=== PATIENT | female | born 1950 | race Caucasian/White ===

== ENCOUNTER → 2018-02-20 | Outpatient (CLI) | payer MEDICARE, OTHER ==
[2015-12-23 08:08] VITALS: BP 150/90
[~2018-02-20] MED LIST: MECL25TA3 PO
== END | disposition home or self-care (01) ==
LOC: SURG 14:16
PROVIDERS: ATTEND Anesthesiology
DX: M54.16 Radiculopathy, lumbar region (principal); M54.14 Radiculopathy, thoracic region; I10 Essential (primary) hypertension; E78.5 Hyperlipidemia, unspecified; Z96.652 Presence of left artificial knee joint; Z90.710 Acquired absence of both cervix and uterus
CPT/HCPCS: 99204

== ENCOUNTER → 2018-02-27 | Outpatient (CLI) | payer MEDICARE, OTHER ==
[2015-12-23 08:08] VITALS: BP 150/90
== END | disposition home or self-care (01) ==
LOC: SURG 13:37
PROVIDERS: ATTEND Anesthesiology
DX: I10 Essential (primary) hypertension (principal); E78.5 Hyperlipidemia, unspecified; M54.5 Low back pain; R10.84 Generalized abdominal pain
CPT/HCPCS: 99214

== ENCOUNTER → 2018-03-29 | Outpatient (CLI) | payer MEDICARE, OTHER ==
[~2018-03-29] MED LIST changes: +ASPI81TA50 PO; +BUPIVACAINE MPF 0.5% 30 ML VIAL. ONE; +CELE200C PO; +CHOL10003 PO; +CYCL-331 PO; +FEXO180T81 PO; +GABA800T2 PO; +GLUC100018 PO; +IOHEXOL 300 MG/ML 50 ML VIAL. ONE; +IV RINGERS SOLUTION,LACTATED 1,000 ML IV SCH; +LACT1CAP21 PO; +LIDOCAINE 1% PF 30 ML VIAL. ONE; +LOSA25TA4 PO; +MAGN400C PO; +MIDAZOLAM HCL PF 2 MG/2 ML VIAL. ONE; +MULT1TAB52 PO; +OXYC-323 PO; +POTA10TA10 PO; +PRAV20TA2 PO; +RANI150T21 PO; +ceFAZolin SODIUM 1 GM VIAL ONE
== END | disposition home or self-care (01) ==
LOC: SURG 07:28
PROVIDERS: ATTEND Anesthesiology Pain Medicine
DX: M48.56XA Collapsed vertebra, not elsewhere classified, lumbar region, initial encounter for fracture (principal); M54.5 Low back pain; I10 Essential (primary) hypertension; Z87.39 Personal history of other diseases of the musculoskeletal system and connective tissue
CPT/HCPCS: 22514; C1713; J0690; J2001; J2250; J3010; J3490; J7120; Q9967; 22513; 99152; 99153

== ENCOUNTER → 2018-04-12 | Outpatient (CLI) | payer MEDICARE, OTHER ==
[~2018-04-12] MED LIST changes: +0.9 % SODIUM CHLORIDE 10 ML VIAL ONE; -BUPIVACAINE MPF 0.5% 30 ML VIAL. ONE; +DEXAMETHASONE SOD PHOS 4 MG/ML VIAL ONE; -IV RINGERS SOLUTION,LACTATED 1,000 ML IV SCH; -MIDAZOLAM HCL PF 2 MG/2 ML VIAL. ONE; -ceFAZolin SODIUM 1 GM VIAL ONE; +methylPREDNISolone ACETATE 80 MG/ML VIAL. ONE
== END ==
LOC: SURG 09:55
PROVIDERS: ATTEND Anesthesiology Pain Medicine
DX: M54.14 Radiculopathy, thoracic region (principal); I10 Essential (primary) hypertension; Z87.39 Personal history of other diseases of the musculoskeletal system and connective tissue; Z90.710 Acquired absence of both cervix and uterus; Z96.652 Presence of left artificial knee joint
CPT/HCPCS: 62321; J1040; J2001; Q9967; 62323

== ENCOUNTER → 2018-05-18 | Outpatient (CLI) | payer MEDICARE, OTHER ==
[~2018-05-18] MED LIST changes: -0.9 % SODIUM CHLORIDE 10 ML VIAL ONE; -DEXAMETHASONE SOD PHOS 4 MG/ML VIAL ONE; -IOHEXOL 300 MG/ML 50 ML VIAL. ONE; -LIDOCAINE 1% PF 30 ML VIAL. ONE; -methylPREDNISolone ACETATE 80 MG/ML VIAL. ONE
== END | disposition home or self-care (01) ==
LOC: SURG 13:36
PROVIDERS: ATTEND Anesthesiology Pain Medicine
DX: M54.14 Radiculopathy, thoracic region (principal); I10 Essential (primary) hypertension; E78.5 Hyperlipidemia, unspecified; G62.9 Polyneuropathy, unspecified; Z96.652 Presence of left artificial knee joint; Z90.710 Acquired absence of both cervix and uterus; Z98.890 Other specified postprocedural states; Z79.82 Long term (current) use of aspirin; Z79.899 Other long term (current) drug therapy; Z88.2 Allergy status to sulfonamides
CPT/HCPCS: 62321; J1040; J1100; J2001; Q9967

== ENCOUNTER → 2018-07-06 | Outpatient (CLI) | payer MEDICARE, OTHER | END | disposition home or self-care (01) | LOC: SURG 13:27 | PROVIDERS: ATTEND Anesthesiology Pain Medicine | DX: M47.814 Spondylosis without myelopathy or radiculopathy, thoracic region (principal); M54.14 Radiculopathy, thoracic region; G89.4 Chronic pain syndrome; F11.90 Opioid use, unspecified, uncomplicated; Z87.81 Personal history of (healed) traumatic fracture | CPT/HCPCS: 99214 ==

== ENCOUNTER → 2018-09-13 | Outpatient (CLI) | payer MEDICARE, OTHER ==
[~2018-09-13] MED LIST changes: -LOSA25TA4 PO; +LOSA25TA5 PO
== END | disposition home or self-care (01) ==
LOC: SURG 10:07
PROVIDERS: ATTEND Anesthesiology Pain Medicine
DX: M51.35 Other intervertebral disc degeneration, thoracolumbar region (principal); M48.50XA Collapsed vertebra, not elsewhere classified, site unspecified, initial encounter for fracture; M47.814 Spondylosis without myelopathy or radiculopathy, thoracic region; G89.4 Chronic pain syndrome; J44.9 Chronic obstructive pulmonary disease, unspecified; I10 Essential (primary) hypertension; M19.90 Unspecified osteoarthritis, unspecified site; F11.90 Opioid use, unspecified, uncomplicated
CPT/HCPCS: 99214

== ENCOUNTER → 2018-09-27 | Outpatient (CLI) | payer MEDICARE, OTHER ==
[~2018-09-27] MED LIST changes: +BUPIVACAINE MPF 0.25% 30 ML VIAL. ONE; +LIDOCAINE 1% PF 30 ML VIAL. ONE
== END | disposition home or self-care (01) ==
LOC: SURG 10:11
PROVIDERS: ATTEND Anesthesiology Pain Medicine
DX: M47.814 Spondylosis without myelopathy or radiculopathy, thoracic region (principal); Z79.899 Other long term (current) drug therapy; Z79.82 Long term (current) use of aspirin; Z88.1 Allergy status to other antibiotic agents; Z88.0 Allergy status to penicillin; Z88.5 Allergy status to narcotic agent; Z88.8 Allergy status to other drugs, medicaments and biological substances; Z88.6 Allergy status to analgesic agent
CPT/HCPCS: 64490; 64491; 64492; J2001; J3490

== ENCOUNTER → 2018-12-20 | Day surgery (SDC) | payer MEDICARE, OTHER ==
[~2018-12-20] MED LIST changes: +BUPIVACAINE MPF 0.25% 10 ML VIAL. ONE; -BUPIVACAINE MPF 0.25% 30 ML VIAL. ONE; +DEXAMETHASONE SOD PHOS 4 MG/ML VIAL ONE; +DULO60CA6 PO; -GABA800T2 PO; +GABA800T5 PO; +HYDR200T71 PO; +IV RINGERS SOLUTION,LACTATED 1,000 ML IV ONE; +LOSA25TA11 PO; -LOSA25TA5 PO; +MIDAZOLAM HCL PF 2 MG/2 ML VIAL. ONE; -OXYC-323 PO; +OXYC1TAB15 PO; +PANT40TA5 PO
[2018-12-20 10:18] VITALS: BP 100/60
--- NOTE | 2018-12-20 12:28 | NUR ---
I STARTED LR ON THE PT AFTER SHE WAS ADMITTED DUE TO HER PRESSURE RUNNING A LITTLE LOW. ORDER FOR LR WAS MISSED IN THE COMPUTER SO IT IS A LATE ENTRY. I STARTED IT AT 0805 USING PRESENT SL. PUT ORDER IN COMPUTER AFTER CASE WAS DONE AND PT WAS IN RECOVERY.
== END | disposition home or self-care (01) ==
LOC: SURG 07:23
PROVIDERS: ATTEND Anesthesiology Pain Medicine
DX: M47.814 Spondylosis without myelopathy or radiculopathy, thoracic region (principal); I10 Essential (primary) hypertension; K21.9 Gastro-esophageal reflux disease without esophagitis; M19.90 Unspecified osteoarthritis, unspecified site; Z98.890 Other specified postprocedural states; Z90.710 Acquired absence of both cervix and uterus; Z96.652 Presence of left artificial knee joint; Z88.1 Allergy status to other antibiotic agents; Z79.82 Long term (current) use of aspirin; Z79.899 Other long term (current) drug therapy; E78.5 Hyperlipidemia, unspecified; G62.9 Polyneuropathy, unspecified
CPT/HCPCS: 64633; 64634; 99152; 99153; J1100; J2001; J2250; J3010; J3490; J7120

== ENCOUNTER → 2019-01-17 | Day surgery (SDC) | payer MEDICARE, OTHER ==
[2018-12-20 10:18] VITALS: BP 100/60
[~2019-01-17] MED LIST changes: -IV RINGERS SOLUTION,LACTATED 1,000 ML IV ONE; -MIDAZOLAM HCL PF 2 MG/2 ML VIAL. ONE
== END | disposition home or self-care (01) ==
LOC: SURG 07:24
PROVIDERS: ATTEND Anesthesiology Pain Medicine
DX: M47.894 Other spondylosis, thoracic region (principal); M54.16 Radiculopathy, lumbar region; G89.4 Chronic pain syndrome; F11.90 Opioid use, unspecified, uncomplicated; I10 Essential (primary) hypertension; E78.5 Hyperlipidemia, unspecified; Z96.652 Presence of left artificial knee joint; Z90.710 Acquired absence of both cervix and uterus; Z79.899 Other long term (current) drug therapy
CPT/HCPCS: 99214; J1100; J2001; J3490

== ENCOUNTER → 2019-10-11 | Outpatient (CLI) | payer MEDICARE, OTHER ==
[~2019-10-11] MED LIST changes: +ACET500T68 PO; -BUPIVACAINE MPF 0.25% 10 ML VIAL. ONE; -DEXAMETHASONE SOD PHOS 4 MG/ML VIAL ONE; +FERR325T14 PO; -LIDOCAINE 1% PF 30 ML VIAL. ONE; +RANI-376 PO; -RANI150T21 PO
[2019-10-11 12:53] VITALS: BP 133/82
== END | disposition home or self-care (01) ==
LOC: SURG 12:30
PROVIDERS: ATTEND Anesthesiology Pain Medicine
DX: M54.16 Radiculopathy, lumbar region (principal); M47.814 Spondylosis without myelopathy or radiculopathy, thoracic region; G89.4 Chronic pain syndrome; I10 Essential (primary) hypertension; E78.5 Hyperlipidemia, unspecified; Z96.652 Presence of left artificial knee joint; Z90.710 Acquired absence of both cervix and uterus; Z79.82 Long term (current) use of aspirin; Z79.1 Long term (current) use of non-steroidal anti-inflammatories (NSAID); Z98.890 Other specified postprocedural states; Z79.899 Other long term (current) drug therapy
CPT/HCPCS: 99214

== ENCOUNTER → 2019-11-06 | Outpatient (CLI) | payer MEDICARE, OTHER ==
[~2019-11-06] MED LIST changes: +0.9 % SODIUM CHLORIDE 10 ML VIAL ONE; +DICL100G18 TP; +IOHEXOL 300 MG/ML 50 ML VIAL. ONE; +LIDOCAINE 1% PF 30 ML VIAL. ONE; +methylPREDNISolone ACETATE 80 MG/ML VIAL. ONE
[2019-11-06 15:25] VITALS: BP 121/72
== END ==
LOC: SURG 14:29
PROVIDERS: ATTEND Anesthesiology Pain Medicine
DX: M54.16 Radiculopathy, lumbar region (principal)
CPT/HCPCS: 62323; J1040; J2001; Q9967

== ENCOUNTER → 2019-12-05 | Outpatient (CLI) | payer MEDICARE, OTHER ==
[~2019-12-05] MED LIST changes: +HYDR-2155 PO; +MECL-75 PO; -MECL25TA3 PO
[2019-12-05 14:26] VITALS: BP 129/80
== END | disposition home or self-care (01) ==
LOC: SURG 13:26
PROVIDERS: ATTEND Anesthesiology Pain Medicine
DX: M54.16 Radiculopathy, lumbar region (principal); M47.814 Spondylosis without myelopathy or radiculopathy, thoracic region; M54.5 Low back pain; G89.4 Chronic pain syndrome; I10 Essential (primary) hypertension; E78.5 Hyperlipidemia, unspecified; G62.89 Other specified polyneuropathies; Z88.8 Allergy status to other drugs, medicaments and biological substances; Z98.890 Other specified postprocedural states; Z79.82 Long term (current) use of aspirin; Z79.899 Other long term (current) drug therapy; Z90.710 Acquired absence of both cervix and uterus; Z96.652 Presence of left artificial knee joint
CPT/HCPCS: 62323; J1040; J2001; Q9967

== ENCOUNTER → 2020-01-02 | Outpatient (CLI) | payer MEDICARE, OTHER ==
[~2020-01-02] MED LIST changes: +BUPIVACAINE MPF 0.25% 10 ML VIAL. ONE
[2020-01-02 14:25] VITALS: BP 141/83
== END ==
LOC: SURG 13:29
PROVIDERS: ATTEND Anesthesiology Pain Medicine
DX: M54.16 Radiculopathy, lumbar region (principal); I10 Essential (primary) hypertension; E78.5 Hyperlipidemia, unspecified; G62.9 Polyneuropathy, unspecified; Z96.652 Presence of left artificial knee joint; Z90.710 Acquired absence of both cervix and uterus
CPT/HCPCS: 62323; J1040; J2001; Q9967; J3490

== ENCOUNTER 2020-02-03 18:30 | Emergency (ER) | payer MEDICARE, OTHER ==
[~2020-02-03] VITALS: Ht 162.6 cm; Wt 82.7 kg
[~2020-02-03 18:30] MED LIST changes: -0.9 % SODIUM CHLORIDE 10 ML VIAL ONE; -BUPIVACAINE MPF 0.25% 10 ML VIAL. ONE; -IOHEXOL 300 MG/ML 50 ML VIAL. ONE; -LIDOCAINE 1% PF 30 ML VIAL. ONE; -methylPREDNISolone ACETATE 80 MG/ML VIAL. ONE
[2020-02-03 19:04] VITALS: BP 148/98
[2020-02-03] MEDS ORDERED: HYDROcodone/APAP 5/325MG 1 TAB TABLET PO ONE (19:15)
--- NOTE | 2020-02-03 19:57 | RAD ---
Study: HIP LEFT 2V WITH PELVIS Indication: Chronic pain. Remote trauma. Comparison: None available. Findings: No acute fracture. Moderate right and mild left hip arthrosis. Degenerative changes at the sacroiliac joints with periarticular sclerosis. Discogenic arthrosis at the visualized lumbar levels. No radiographic evidence for a sacral fracture. Relatively symmetric density of both femoral heads and without definitive findings of avascular necrosis. Impression: 1. No acute osseous abnormality. 2. Moderate right and mild left hip arthrosis. Degenerative changes also seen at the sacroiliac joints and visualized lumbar spine. Electronically signed by: JOEL FREDERICK MD (02/03/2020 7:54 PM) [id number]
--- NOTE | 2020-02-03 20:02 | PHYS DOC ---
Past History Past Medical History: Arthritis, Hypertension Past Surgical History: Hysterectomy, Knee Replacement, Tonsillectomy Additional Past Surgical Histo: bilateral knee replacement Alcohol Use: None Drug Use: None Adult General Chief Complaint Chief Complaint: BACK PAIN OR INJURY [facility] HPI Patient is 69-year-old female presenting with left back pain. Is been every day all day worse in the morning for the last 8 months has gotten steroid injections in the past most recently December 2019 January 02 she thinks. Today she was at the chiropractor they did what sounds most like a tens unit and then when she got up from a lying down position she had increasing pain left side left buttock radiates to the left knee down the posterior leg. No bowel or bladder incontinence. She was having significant pain to the came to the emergency room for evaluation she fell 8 months ago they were worried because nobody ever checked her hip and they were thinking that maybe we could do that tonight. Review of Systems Review of Systems Constitutional: Denies fever or chills [] Eyes: Denies change in visual acuity, redness, or eye pain [] HENT: Denies nasal congestion or sore throat [] Respiratory: Denies cough or shortness of breath [] Cardiovascular: No additional information not addressed in HPI [] All other systems were reviewed and found to be within normal limits, except as documented in this note. Current Medications Current Medications Current Medications Medications (Trade) Dose Ordered Sig/Chris Start Time Stop Time Status Last Admin Dose Admin Acetaminophen/ Hydrocodone Bitart (Lortab 5/325) 2 tab 1X ONCE 02/03/20 19:15 02/03/20 19:16 DC Allergies Allergies Allergies Coded Allergies Type Severity Reaction Last Updated Verified niacin Allergy Unknown 12/05/19 Yes Physical Exam Physical Exam Constitutional: Well developed, well nourished, no acute distress, non-toxic a ppearance. [] HENT: Normocephalic, atraumatic, bilateral external ears normal, oropharynx moist, no oral exudates, nose normal. [] Eyes: PERRLA, EOMI, conjunctiva normal, no discharge. [] Neck: Normal range of motion, no tenderness, supple, no stridor. [] Cardiovascular:Heart rate regular rhythm, no murmur [] Lungs & Thorax: Bilateral breath sounds clear to auscultation [] Abdomen: Bowel sounds normal, soft, no tenderness, no masses, no pulsatile masses. [] Skin: Warm, dry, no erythema, no rash. [] Aris tender to palpation left buttock left posterior paraspinous area no midline focal tenderness. Extremities: No tenderness, no cyanosis, no clubbing, ROM intact, no edema. [] Neurologic: Alert and oriented X 3, normal motor function, normal sensory function except for decreased sensation to light touch bilaterally in bilateral lower extremities secondary to pre-existing neuropathy no focal deficits noted. [] Psychologic: Affect normal, judgement normal, mood normal. [] Current Patient Data Vital Signs Vital Signs Date Time Temp Pulse Resp B/P (MAP) Pulse Ox O2 Delivery O2 Flow Rate FiO2 02/03/20 19:04 98.3 112 16 148/98 (115) 96 Room Air EKG EKG [] Radiology/Procedures Radiology/Procedures [] Impressions: acute fracture. Moderate right and mild left hip arthrosis. Degenerative changes at the sacroiliac joints with periarticular sclerosis. Discogenic arthrosis at the visualized lumbar levels. No radiographic evidence for a sacral fracture. Relatively symmetric density of both femoral heads and without definitive findings of avascular necrosis. Impression: 1. No acute osseous abnormality. 2. Moderate right and mild left hip arthrosis. Degenerative changes also seen at the sacroiliac joints and visualized lumbar spine. Electronically signed by: JOEL FREDERICK MD (02/03/2020 7:54 PM) [id number] DICTATED AND SIGNED BY: JOEL FREDERICK MD DATE: 02/03/201953 CC: DORA VALLADARES MD; ARIEL ZHAO MD ~ Course & Med Decision Making Course & Med Decision Making Pertinent Labs and Imaging studies reviewed. (See chart for details) [] 69-year-old female presenting with back pain sounds like sciatica acutely worsened today but is been present for months and months and months has follow- up with pain management tomorrow. X-ray imaging of the hip was negative acute I did give the patient a dose of [place] and advised specialty referral as she has follow-up for already tomorrow. No signs of cauda equina. Dragon Disclaimer Dragon Disclaimer This electronic medical record was generated, in whole or in part, using a voice recognition dictation system. Departure Departure: Impression: Primary Impression: Back pain Disposition: 01 HOME, SELF-CARE Condition: STABLE Patient Instructions: Back Pain, Adult, [id number] ARIEL ZHAO MD Feb 03, 2020 20:02
== END 2020-02-03 20:28 | disposition home or self-care (01) ==
LOC: ER 18:30
DX: M54.5 Low back pain (principal); M25.552 Pain in left hip; M19.90 Unspecified osteoarthritis, unspecified site; I10 Essential (primary) hypertension; Z90.710 Acquired absence of both cervix and uterus; Z90.89 Acquired absence of other organs; Z98.890 Other specified postprocedural states; Z88.1 Allergy status to other antibiotic agents
CPT/HCPCS: 73502; 99284

== ENCOUNTER 2020-12-05 11:43 | Emergency (ER) | payer MEDICARE, OTHER ==
[~2020-12-05] VITALS: Ht 162.6 cm; Wt 82.7 kg
[2020-12-05 11:43] VITALS: BP 140/79
[~2020-12-05 11:43] MED LIST changes: +MULT-445 PO; -MULT1TAB52 PO; -PANT40TA5 PO; +PANT40TA6 PO
[2020-12-05] MEDS ORDERED: IV NORMAL SALINE 1,000ML 1,000 ML IV ONE (12:30)
--- NOTE | 2020-12-05 12:32 | PHYS DOC ---
Past History Past Medical History: Arthritis, Hypertension (HELENA HARRIS APRN) Past Surgical History: Hysterectomy, Knee Replacement, Tonsillectomy Additional Past Surgical Histo: bilateral knee replacement (HELENA HARRIS APRN) Alcohol Use: None Drug Use: None (HELENA HARRIS APRN) Adult General Chief Complaint Chief Complaint: DIARRHEA HPI HPI Patient is a 70-year-old female presents emergency department with a 5-day history of explosive diarrhea. Patient states that within a half an hour of eating she finds her self running to the bathroom and having diarrhea spells at times has been incontinent of stool. Patient notices undigested food and brown watery stool in the diarrhea. Patient denies any abdominal pains. Patient denies being on any recent antibiotics. Patient denies nausea, vomiting, constipation, or seeing blood in her stools. Patient describes her stool is very malodorous. Patient states she is eating and drinking okay and has been drinking Gatorade to keep her fluids up. Patient denies any shortness of breath, chest pains, chest congestion, or nasal congestion, patient denies recent fever or chills. Patient denies any recent illnesses. Patient reports that she seen Dr. Greene 2 days ago this past who had her give 3 stool samples looking for C. difficile. Patient states she has not heard the results back from Dr. Herron's office. Patient states that over the past 24 hours she has had 6-8 diarrhea spells. Patient reports an allergy to niacin. Patient works a past medical history of chronic back pains that was relieved with a spine cement procedure 3 years ago and no longer requires muscle relaxers or pain medications for pain management. 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 Patient also suffered a fall that resulted in a left patellar fracture and currently is followed by orthopedic specialty and is wearing a knee brace on the left lower extremity. Patient states that she stopped taking her iron supplement 2 days ago because she noticed it was making her stools black. Patient states since then she is no longer noticing black stools. Patient denies any other illnesses or physical complaints. Patient states no one else living in her home is having the same symptoms that she. (HELENA HARRIS APRN) Review of Systems Review of Systems 14 body systems of review of systems have been reviewed. See HPI for pertinent positives and negative responses, otherwise all other systems are negative, nonpertinent or noncontributory. (HELENA HARRIS APRN) Current Medications Current Medications Patient reports taking 10 mEq potassium chloride daily, vitamin D3 1000 unit tablet daily, multivitamin daily, pravastatin 20 mg daily, losartan 25 mg daily, pantoprazole 40 mg daily, Voltaren gel topical twice daily. Current Medications Medications (Trade) Dose Ordered Sig/Chris Start Time Stop Time Status Last Admin Dose Admin Sodium Chloride 1,000 ml @ 1,000 mls/hr 1X ONCE 12/05/20 12:30 12/05/20 13:29 12/05/20 12:28 1,000 MLS/HR (HELENA HARRIS APRN) Allergies Allergies Allergies Coded Allergies Type Severity Reaction Last Updated Verified niacin Allergy Unknown 12/05/19 Yes (HELENA HARRIS APRN) Physical Exam Physical Exam Constitutional: Well developed, well nourished, no acute distress, non-toxic appearance. HENT: Normocephalic, atraumatic, bilateral external ears normal, oropharynx moist, no oral exudates, nose normal. Oral mucosa moist without signs of dehydration. Eyes: PERRLA, EOMI, conjunctiva normal, no discharge. Neck: Normal range of motion, no tenderness, supple, no stridor. Cardiovascular:Heart rate regular rhythm, no murmur, heart sounds S1-S2., Increased heart rate consistent with bedside 5-lead EKG of 103 bpm. Lungs & Thorax: Bilateral breath sounds clear to auscultation all lung hartley. Abdomen: Bowel sounds normal, soft, no tenderness, no masses, no pulsatile masses. Skin: Warm, dry, no erythema, no rash. Back: No tenderness, no CVA tenderness. Extremities: No tenderness, no cyanosis, no clubbing, ROM intact, no edema. Neurologic: Alert and oriented X 3, normal motor function, normal sensory function, no focal deficits noted. Psychologic: Affect normal, judgement normal, mood normal. (HELENA HARRIS APRN) Current Patient Data Vital Signs Vital Signs Date Time Temp Pulse Resp B/P (MAP) Pulse Ox O2 Delivery O2 Flow Rate FiO2 12/05/20 11:43 99.0 99 12 140/79 (99) 100 Room Air (HELENA HARRIS APRN) EKG EKG [] (HELENA HARRIS APRN) Radiology/Procedures Radiology/Procedures [] (HELENA HARRIS APRN) Heart Score Risk Factors: Risk Factors: DM, Current or recent (<one month) smoker, HTN, HLP, family history of CAD, obesity. Risk Scores: Risk Factors: DM, Current or recent (<one month) smoker, HTN, HLP, family history of CAD, obesity. (HELENA HARRIS APRN) Course & Med Decision Making Course & Med Decision Making Pertinent Labs and Imaging studies reviewed. (See chart for details) 70-year-old female with reported 5-day history of explosive diarrhea without abdominal pain. Physical exam was unremarkable, vital signs stable except for heart rate slightly tachycardic at 103 during exam. ED work-up will consist of CBC, CMP, lipase, routine Covid test for PUI, saline lock, 1 L normal saline. Labs pending at this time. Reexamination of patient revealed vital signs stable, heart rate normal sinus rhythm without ectopy for 5-lead bedside EKG. Patient states she feels much better. Patient has had no diarrhea spells during her ER stay. We will treat patient's complaint of diarrhea with 4 mg Imodium p.o. and will discharge with prescription for Imodium with strict instructions how to take. Patient gave verbal understanding of COVID-19 PUI instructions, prescription medications, discharge instructions, home care, return to emergency department concerns, follow-up with primary care on Monday for stool sample results, patient had no further questions or concerns and was discharged home without incident. Impression: #1 diarrhea #2 PUI (HELENA HARRIS APRN) Course & Med Decision Making I oversaw care of patient while in ER. I reviewed and discussed case with HOT PRESS OPERATOR, I agree to note, plan of care and dispo as stated (HEIDE PANDA DO) Kristine Disclaimer Dragon Disclaimer This electronic medical record was generated, in whole or in part, using a voice recognition dictation system. (HELENA HARRIS APRN) Departure Departure: Impression: Primary Impression: Diarrhea Additional Impressions: Person under investigation for COVID-19 Counseled about COVID-19 virus infection Educated about COVID-19 virus infection Suspected COVID-19 virus infection Disposition: 01 DC HOME SELF CARE/HOMELESS Condition: IMPROVED Referrals: DORA VALLADARES MD (PCP) Patient Instructions: Diarrhea, Diet for Diarrhea, Adult Additional Instructions: Take medications as prescribed, follow-up with your doctor this Monday to obtain stool sample results, follow diet for diarrhea recommendations for the next 48 hours, increase fluids to prevent dehydration, return to the emergency department for worsening symptoms or other concerns. Your COVID-19 results should be available within the next 48 hours. You have been tested for or diagnosed with COVID-19. It is an infection caused by a new type of coronavirus. COVID-19 will cause cold-like or mild flu symptoms in most. It can cause more severe symptoms like problems breathing in some. There is no treatment for COVID-19. The body will clear the infection over time. Self-care will help to ease discomfort. Steps to Take: Self-Care Rest as needed. Healthy habits may help you feel better. Steps include: Choose healthy foods including fruits and vegetables. Drink water throughout the day. Get plenty of sleep each night. If you smoke, try to quit. It may ease breathing. Avoid alcohol. Keep Others Healthy The virus can spread to others. Droplets are released every time you sneeze or cough. The droplets can get into the mouth, nose, or eyes of people near you and lead to infection. To lower the chances of spreading COVID-19 to others: Stay at home until your doctor has said it is safe to leave. If you tested positive this will mean staying isolated until both of the following are true: At least 7 days have passed since the start of illness. You are free of fever for at least 72 hours without the use of medicine. During this time: - Avoid public areas, events, or transportation. Do not return to work or school until your doctor has said it is safe to do so. - Call ahead if you need to go to a medical center. Let them know you may have COVID-19. It will help them guide you where to go. They may also ask you to wear a facemask when you come to the office. - If you call for emergency medical services, let them know you may have COVID- 19. While at home: - Try to avoid close contact with others. Stay about 6 feet away. - If possible, spend most of your time in a separate room from others. - Use a face mask if you will be in close contact with others such as sharing a room or vehicle. - Have someone wipe down common surfaces in the home. Use household planning feeder every day on areas like doorknobs, counters, or sinks. - Cough or sneeze into a tissue. Throw the tissue away right after use. If a tissue is not available, cough or sneeze into your elbow. - Wash your hands often. Wash them after sneezing or coughing. Use soap and water and wash for at least 20 seconds. Alcohol based hand parts cleaner can be used if soap and water is not available. - Do not prepare food for others. Avoid sharing personal items like forks, spoons, or toothbrushes. - Avoid close contact with pets while you are sick. There is no evidence of the virus passing to pets. This is a safety step until more is known about this virus. Isolation can be frustrating. Social interaction can help. Keep in touch with friends and family through phone and tech options. You can still interact with others in your home, just keep a safe distance of about 6 feet. Follow-up: Your doctors office will check in with you to see if there are any changes in your health. You may be asked to keep track of symptoms to share with them. They will also let you know when you are clear to be in public again. Problems to Look Out For: Contact your doctor if your recovery is not going as you expect. Get emergency care if you have problems such as: - Trouble breathing - Nonstop chest pain or pressure - Changes in awareness, confusion, or problems waking - Lips or face have bluish color - Worsening of symptoms If you think you have an emergency, call for emergency medical services right away. As taken from [facility] EMERGENCY DEPARTMENT GENERAL DISCHARGE INSTRUCTIONS Thank you for coming to [facility] (ED) today and trusting us with you care. We trust that you had a positivie experience in our Emergency Department. If you wish to speak to the department management, you may call the director at [phone]. YOUR FOLLOW UP INSTRUCTIONS ARE FOLLOWS: 1. Do you have a private Doctor? If you do not have a private doctor, please ask for a resource list of physicians or clinics that may be able to assist you with follow up care. 2. The Emergency Physician has interpreted your x-rays. The X-Ray specialist will also review them. If there is a change in the findings, you will be notified in 48 hours when at all possible. 3. A lab test or culture has been done, your results will be reviewed and you will be notified if you need a change in treatment. ADDITIONAL INSTRUCTIONS AND INFORMATION: 1. Your care today has been supervised by a physician who is specially trained in emergency care. Many problems require more than one evaluation for a complete diagnosis and treatment. We recommend that you schedule your follow up appointment as recommended to ensure complete treatment of you illness or injury. If you are unable to obtain follow up care and continue to have a problem, or if your condition worsens, we recommend that you return to the ED. 2. We are not able to safely determine your condition over the phone nor are we able to give sound medical advice over the phone. For these safety reasons, if you call for medical advice we will ask you to come to the ED for further evaluation. 3. If you have any questions regarding these discharge instructions please call the ED at [phone]. SAFETY INFORMATION: In the interest of safety, wellness, and injury prevention; we encourage you to wear your sealbelt, if you smoke; quite smoking, and we encourage family to use a protective helmet for bicycling and other sporting events that present an increased risk for head injury. IF YOUR SYMPTOMS WORSEN OR NEW SYMPTOMS DEVELOP, OR YOU HAVE CONCERNS ABOUT YOUR CONDITION; OR IF YOUR CONDITION WORSENS WHILE YOU ARE WAITING FOR YOUR FOLLOW UP APPOINTMENT; EITHER CONTACT YOUR PRIMARY CARE DOCTOR, THE PHYSICIAN WHOSE NAME AND NUMBER YOU WERE GIVEN, OR RETURN TO THE ED IMMEDIATELY. Scripts Loperamide HCl (Imodium A-D) 2 Mg Capsule 2 MG PO UD for DIARRHEA, #14 CAP 0 Refills TAKE ONE 2MG TABLET AFTER EACH DIARRHEA STOOL FOR A MAXIMUM OF 16MG (8 TABLETS) PER 24 HOUR PERIOD. Prov: HELENA HARRIS APRN 12/05/20 Problem Qualifiers Primary Impression: Diarrhea Diarrhea type: unspecified type Qualified Codes: R19.7 - Diarrhea, unspecified HELENA HARRIS APRN Dec 05, 2020 12:32 HEIDE PANDA DO Dec 08, 2020 15:05
[2020-12-05 12:49] LABS: BASO % 0 % (0-3); EOS # 0.2 x10^3/uL (0.0-0.7); EOS % 4 % (0-3); HEMATOCRIT 38.6 % (36.0-47.0); LYMPH # 1.6 x10^3/uL (1.0-4.8); LYMPH % 27 % (24-48); MEAN CORPUSCULAR HEMOGLOBIN 31 pg (25-35); MEAN CORPUSCULAR HGB CONC 34 g/dL (31-37); MEAN CORPUSCULAR VOLUME 93 fL (79-100); MONO # 0.3 x10^3/uL (0.0-1.1); MONO % 5 % (0-9); NEUT # 3.8 x10^3uL (1.8-7.7); NEUT % 64 % (31-73); PLATELET COUNT 187 x10^3/uL (140-400); RED BLOOD COUNT 4.15 x10^6/uL (3.50-5.40); RED CELL DISTRIBUTION WIDTH 13.5 % (11.5-14.5)
[2020-12-05 12:54] LABS: CALCIUM 8.9 mg/dL (8.5-10.1); CREATININE 0.8 mg/dL (0.6-1.0); GFR 71.3; POTASSIUM 4.3 mmol/L (3.5-5.1)
[2020-12-05 13:00] LABS: ALBUMIN 3.4 g/dL (3.4-5.0); ALBUMIN/GLOBULIN RATIO 0.9 (1.0-1.7); TOTAL BILIRUBIN 0.6 mg/dL (0.2-1.0); TOTAL PROTEIN 7.3 g/dL (6.4-8.2)
[2020-12-05] MEDS ORDERED: LOPERAMIDE 2 MG CAPSULE PO ONE ×2 (13:30→13:33)
[2020-12-05] MEDS ORDERED: LOPE-101 PO (13:42)
--- NOTE | 2020-12-07 09:05 | NUR ---
IP: notified patient of COVID result.
== END 2020-12-05 13:50 | disposition home or self-care (01) ==
LOC: ER 11:43
DX: R19.7 Diarrhea, unspecified (principal); M19.90 Unspecified osteoarthritis, unspecified site; I10 Essential (primary) hypertension; Z20.822 Contact with and (suspected) exposure to COVID-19; Z90.710 Acquired absence of both cervix and uterus; Z88.1 Allergy status to other antibiotic agents
CPT/HCPCS: 36415; 80053; 83690; 85025; 96360; 99283; C9803; J7030; U0003

== ENCOUNTER → 2020-12-24 | Outpatient (CLI) | payer MEDICARE, OTHER ==
[2020-12-05 11:43] VITALS: BP 140/79
[~2020-12-24] MED LIST changes: +LOPE-101 PO
--- NOTE | 2020-12-25 16:07 | RAD ---
EXAMINATION: MG 2D BILAT SCREENING CLINICAL HISTORY: Routine screening TECHNIQUE: Digital craniocaudal, mediolateral oblique, and exaggerated lateral craniocaudal views of the bilateral breasts obtained. COMPARISON: 09/17/2019, 09/03/2018, 06/14/2017 BREAST COMPOSITION: There are scattered areas of fibroglandular density. FINDINGS: No evidence of suspicious mass, calcifications, or areas of architectural distortion. IMPRESSION: No mammographic evidence of malignancy. BI-RADS ASSESSMENT: Category 1: Negative RECOMMENDATION: Return for routine bilateral screening mammogram in one year. PQRS compliance statement - Patient information was entered into a reminder system with a target due date for the next mammogram. "Our facility is accredited by the [employer] Mammography Program." Electronically signed by: Tommy Evans DO (12/25/2020 4:05 PM) [id number]
== END ==
LOC: MAMMO 08:50
PROVIDERS: ATTEND Family Medicine
DX: Z12.31 Encounter for screening mammogram for malignant neoplasm of breast (principal)
CPT/HCPCS: 77067

== ENCOUNTER → 2021-05-04 | Outpatient (CLI) | payer MEDICARE, OTHER ==
--- NOTE | 2021-05-04 18:36 | RAD ---
EXAM: PA and Lateral Views of the Chest DATE: 05/04/2021 5:59 PM INDICATION: Reason: COUGH, SHORTNESS OF BREATH X 1 WEEK / Spl. Instructions: NONSMOKER / History: COMPARISON: No Prior FINDINGS: The heart is not enlarged. Mediastinal and hilar contours are normal. No focal parenchymal airspace opacity. No pleural effusion or pneumothorax. Multilevel degenerative changes of the spine with leftward curvature of the lumbar spine and rightwar d curvature of the thoracic spine. IMPRESSION: 1. No radiographic evidence for acute cardiopulmonary process. Electronically signed by: Benoit Landry MD (05/04/2021 6:34 PM) CHANELL
== END ==
LOC: RAD 17:25
PROVIDERS: ATTEND Nurse Practitioner Family
DX: R06.89 Other abnormalities of breathing (principal); R05 Cough
CPT/HCPCS: 71046

== ENCOUNTER → 2021-09-03 | Outpatient (CLI) | payer MEDICARE, OTHER ==
--- NOTE | 2021-09-03 11:04 | RAD ---
EXAM: Abdomen sonogram. HISTORY: Elevated liver enzyme laboratory values. TECHNIQUE: Imaging of the abdomen was performed. COMPARISON: None. FINDINGS: The exam is limited due to patient body habitus. The liver is upper normal in size. There i s hepatic steatosis. No focal hepatic lesion is seen. There is gallbladder sludge. There is no cholec ystitis. The right kidney is unremarkable. The visualized portions of the pancreas are unremarkable. There is a 3.4 cm distal abdominal aortic aneurysm. There is aortic atherosclerosis. IMPRESSION: 1. Hepatic steatosis and upper normal liver size. 2. Gallbladder sludge. 3. Suspected 3.4 cm abdominal aortic aneurysm. 4. Limited exam due to body habitus. Electronically signed by: Lula Meadows MD (09/03/2021 11:01 AM) [id number]
== END ==
LOC: US 08:50
PROVIDERS: ATTEND Family Medicine
DX: K76.0 Fatty (change of) liver, not elsewhere classified (principal); R74.8 Abnormal levels of other serum enzymes; I70.0 Atherosclerosis of aorta
CPT/HCPCS: 76705

== ENCOUNTER 2021-09-09 16:41 | Emergency (ER) | payer MEDICARE, OTHER ==
[~2021-09-09] VITALS: Ht 167.6 cm; Wt 87.0 kg
[~2021-09-09 16:41] MED LIST changes: -DULO60CA6 PO; +DULO60CA7 PO
[2021-09-09 16:50] VITALS: BP 161/91
--- NOTE | 2021-09-09 17:59 | RAD ---
AP chest. HISTORY: Diaphoresis with near syncope AP view was taken of the chest. Lungs are clear. Heart is normal in size. There is thoracolumbar scol iosis. Aorta is mildly prominent without change from the old study. There is no pleural effusion. The re is medial subluxation of the right shoulder possible arthritis. IMPRESSION: 1. No acute chest disease. 2. Medial subluxation of the right shoulder with arthritis at the shoulder. Electronically signed by: Giovanny Lam MD (09/09/2021 5:56 PM) [facility]
--- NOTE | 2021-09-09 18:04 | EKG ---
[address] [address] Test Date: 2021-09-09 Test Time: 17:36:41 Pat Name: CARLITOS PHELPS Department: Room: Gender: F Pot Puncher: EUGENIA : 1950 Requested By: HELENA HARRIS Order Number: [id number] Reading MD: Joe Dorsey MD Measurements Intervals [place] Rate: 105 P: 28 LA: 168 QRS: 17 QRSD: 84 T: 59 QT: 346 QTc: 461 Interpretive Statements SINUS TACHYCARDIA Electronically Signed On 09-13-2021 11:41:13 CDT by Joe Dorsey MD
--- NOTE | 2021-09-09 18:07 | RAD ---
Exam: CT of lumbar spine without contrast INDICATION: Lower back pain after 2 falls today TECHNIQUE: Sequential axial images through the lumbar spine obtained without IV contrast. Sagittal an d coronal reformatted images were reconstructed from the axial data and reviewed. Exposure: One or more of the following in the visualized dose reduction techniques were utilized for this examination: 1. Automated exposure control 2. Adjustment of the MA and/or KV according to patient size 3. Use of iterative of reconstructive technique Comparisons: None FINDINGS: Mild S-shaped scoliotic curvature of the lumbar spine. There is kyphoplasty changes at the L1 vertebr al body compression fracture with between 25-50% height loss. Grade 1 anterolisthesis of L3 on L4. Grade 1/2 anterolisthesis of L4 on L5. L1-L2: Broad-based disc bulge and mild bilateral facet arthropathy causing moderate to severe spinal canal stenosis. There is also at least moderate bilateral neural foraminal stenosis. L2-L3: Broad-based disc bulge, ligament flavum thickening facet arthropathy causing moderate spinal c anal stenosis and moderate right-sided neural foraminal stenosis. L3-L4: Broad-based disc bulge, ligament flavum thickening and facet arthropathy causing moderate to s evere spinal canal stenosis. There is mild bilateral neural foraminal stenosis. L4-L5: Broad-based disc bulge, ligament flavum thickening and facet arthropathy causing moderate to s evere spinal canal stenosis and mild bilateral neural foraminal stenosis. L5-S1: Broad-based disc bulge, ligament flavum thickening causing mild bilateral neural foraminal wally nosis. Diffuse hepatic steatosis. IMPRESSION: 1. No acute traumatic injury identified in the lumbar spine. 2. Chronic fracture of the L1 vertebral body with between 2550% height loss and associated kyphoplas ty changes. 3. Severe multilevel spondylotic changes lumbar spine as described above. Electronically signed by: Phillip Amaro MD (09/09/2021 6:04 PM) [facility]
[2021-09-09 18:13] LABS: BASO % 0 % (0-3); EOS % 0 % (0-3); HEMATOCRIT 39.3 % (36.0-47.0); HEMOGLOBIN 13.5 g/dL (12.0-15.5); LYMPH # 2.7 x10^3/uL (1.0-4.8); LYMPH % 28 % (24-48); MEAN CORPUSCULAR HEMOGLOBIN 33 pg (25-35); MEAN CORPUSCULAR HGB CONC 34 g/dL (31-37); MEAN CORPUSCULAR VOLUME 95 fL (79-100); MONO # 0.5 x10^3/uL (0.0-1.1); MONO % 5 % (0-9); NEUT # 6.5 x10^3uL (1.8-7.7); NEUT % 66 % (31-73); PLATELET COUNT 213 x10^3/uL (140-400); RED BLOOD COUNT 4.13 x10^6/uL (3.50-5.40); RED CELL DISTRIBUTION WIDTH 13.2 % (11.5-14.5); WHITE BLOOD COUNT 9.8 x10^3/uL (4.0-11.0)
[2021-09-09 18:32] LABS: CALCIUM 9.4 mg/dL (8.5-10.1); CREATININE 0.5 mg/dL (0.6-1.0); GFR 122.3; POTASSIUM 3.6 mmol/L (3.5-5.1)
[2021-09-09 18:59] LABS: ALBUMIN 3.8 g/dL (3.4-5.0); TOTAL BILIRUBIN 0.6 mg/dL (0.2-1.0); TOTAL PROTEIN 7.6 g/dL (6.4-8.2)
--- NOTE | 2021-09-09 20:11 | PHYS DOC ---
Past History Past Medical History: Arthritis, Hypertension Additional Past Medical Histor: chronic pain (HELENA HARRIS APRN) Past Surgical History: Hysterectomy, Knee Replacement Additional Past Surgical Histo: bilateral knee replacement (HELENA HARRIS APRN) Alcohol Use: None Drug Use: None (HELENA HARRIS APRN) Adult General Chief Complaint Chief Complaint: KNEE INJURY HPI HPI Patient is a 71-year-old female who presents emergency department complaining of weakness for the past several months, patient reports she was walking with her walker and her left leg gave out on her and she was unable to get up without a ssistance, patient reports several months of chest tightness after bending over, patient states she is being worked up for neurological problems and rheumatoid arthritis, 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 Patient states she is here because her daughter is worried she may be having a heart attack or may have broken her low back. Patient denies low back pain. Patient denies pain down her extremities. Patient denies syncopal episodes. Patient denies shortness of breath or recent fever or chills. Patient denies other physical complaints or physical concerns. (HELENA HARRIS APRN) Review of Systems Review of Systems 14 body systems of review of systems have been reviewed. See HPI for pertinent positives and negative responses, otherwise all other systems are negative, nonpertinent or noncontributory. Constitutional: Negative except as outlined in HPI above. Skin: Negative except as outlined in HPI above. Eyes: Negative except as outlined in HPI above. HENT: Negative except as outlined in HPI above. Respiratory: Negative except as outlined in HPI above. Cardiovascular: Negative except as outlined in HPI above. GI: Negative except as outlined in HPI above. : Negative except as outlined in HPI above. Musculoskeletal: Negative except as outlined in HPI above. Integument: Negative except as outlined in HPI above. Neurologic: Negative except as outlined in HPI above. Endocrine: Negative except as outlined in HPI above. Lymphatic: Negative except as outlined in HPI above. Psychiatric: Negative except as outlined in HPI above. (HELENA HARRIS APRN) Allergies Allergies Allergies Coded Allergies Type Severity Reaction Last Updated Verified niacin Allergy Unknown 12/05/19 Yes (HELENA HARRIS APRN) Physical Exam Physical Exam Constitutional: Well developed, well nourished, no acute distress, non-toxic appearance. 71-year-old female in no apparent distress. HENT: Normocephalic, atraumatic. Eyes: Conjunctiva normal, no discharge. Neck: Normal range of motion, no stridor. Cardiovascular: No cyanosis appreciated, distal cap refill less than 2 seconds. Heart sounds S1-S2 auscultation, regular rate and rhythm. Lungs & Thorax: Patient is in no respiratory distress, no audible adventitious lung sounds appreciated. No adventitious lung sounds appreciated audibly, clear all lung hartley. Abdomen: Nontender, no abnormalities noted. Skin: Warm, dry, no erythema, no rash. Back: No deformities appreciated, no left-sided or right-sided CVA tenderness TTP, no pain to palpation of lumbar area. No other midline spinal tenderness appreciated. Extremities: No tenderness, no cyanosis, no clubbing, ROM intact, no edema. Joint swelling of phalanges bilateral upper extremities, patient does have history of rheumatoid arthritis, no pain to palpation of lower extremities, 2+ dorsalis pedis/posterior tibial pulses. Neurologic: Alert and oriented X 3, normal motor function, normal sensory function, no focal deficits noted. Psychologic: Affect normal, judgement normal, mood normal. (HELENA HARRIS APRN) Current Patient Data Vital Signs Vital Signs Date Time Temp Pulse Resp B/P (MAP) Pulse Ox O2 Delivery O2 Flow Rate FiO2 09/09/21 16:50 97.9 113 16 161/91 (114) 99 Room Air Lab Results Laboratory Tests Test 09/09/21 17:50 White Blood Count 9.8 x10^3/uL (4.0-11.0) Red Blood Count 4.13 x10^6/uL (3.50-5.40) Hemoglobin 13.5 g/dL (12.0-15.5) Hematocrit 39.3 % (36.0-47.0) Mean Corpuscular Volume 95 fL (79-100) Mean Corpuscular Hemoglobin 33 pg (25-35) Mean Corpuscular Hemoglobin Concent 34 g/dL (31-37) Red Cell Distribution Width 13.2 % (11.5-14.5) Platelet Count 213 x10^3/uL (140-400) Neutrophils (%) (Auto) 66 % (31-73) Lymphocytes (%) (Auto) 28 % (24-48) Monocytes (%) (Auto) 5 % (0-9) Eosinophils (%) (Auto) 0 % (0-3) Basophils (%) (Auto) 0 % (0-3) Neutrophils # (Auto) 6.5 x10^3uL (1.8-7.7) Lymphocytes # (Auto) 2.7 x10^3/uL (1.0-4.8) Monocytes # (Auto) 0.5 x10^3/uL (0.0-1.1) Eosinophils # (Auto) 0.0 x10^3/uL (0.0-0.7) Basophils # (Auto) 0.0 x10^3/uL (0.0-0.2) Sodium Level 136 mmol/L (136-145) Potassium Level 3.6 mmol/L (3.5-5.1) Chloride Level 102 mmol/L (98-107) Carbon Dioxide Level 24 mmol/L (21-32) Anion Gap 10 (6-14) Blood Urea Nitrogen 17 mg/dL (7-20) Creatinine 0.5 mg/dL (0.6-1.0) L Estimated GFR (Cockcroft-Gault) 122.3 BUN/Creatinine Ratio 34 (6-20) H Glucose Level 109 mg/dL (70-99) H Calcium Level 9.4 mg/dL (8.5-10.1) Total Bilirubin 0.6 mg/dL (0.2-1.0) Aspartate Amino Transferase (AST) 76 U/L (15-37) H Alanine Aminotransferase (ALT) 59 U/L (14-59) Alkaline Phosphatase 134 U/L (46-116) H Creatine Kinase 325 U/L (26-192) H Creatine Kinase MB (Mass) 4.2 ng/mL (0.0-3.6) H Creatine Kinase MB Relative Index 1.3 % (0-4) Troponin I Quantitative < 0.017 ng/mL (0-0.055) Total Protein 7.6 g/dL (6.4-8.2) Albumin 3.8 g/dL (3.4-5.0) Albumin/Globulin Ratio 1.0 (1.0-1.7) (HELENA HARRIS APRN) EKG EKG EKG performed at 1736 by ED nursing staff shows a sinus tachycardia at 105 bpm otherwise no other ectopy, DE interval 0.168, QTc interval 0.461, no acute STEMI, no ACS, no acute ischemia appreciated, EKG interpreted by ED attending physician Dr. Panda. (HELENA HARRIS APRN) Radiology/Procedures Radiology/Procedures PATIENT: CARLITOS PHELPS CACCOUNT: [id number] : 1950 LOCATION: ER AGE: 71 SEX: F EXAM STATUS: REG ER ORD. PHYSICIAN: HELENA HARRIS APRN REASON: Low back pain after 2 falls today PROCEDURE: CT LUMBAR SPINE WO CONTRAST Exam: CT of lumbar spine without contrast INDICATION: Lower back pain after 2 falls today TECHNIQUE: Sequential axial images through the lumbar spine obtained without IV contrast. Sagittal and coronal reformatted images were reconstructed from the axial data and reviewed. Exposure: One or more of the following in the visualized dose reduction technDahu ues were utilized for this examination: 1. Automated exposure control 2. Adjustment of the MA and/or KV according to patient size 3. Use of iterative of reconstructive technique Comparisons: None FINDINGS: Mild S-shaped scoliotic curvature of the lumbar spine. There is kyphoplasty changes at the L1 vertebral body compression fracture with between 25-50% height loss. Grade 1 anterolisthesis of L3 on L4. Grade 1/2 anterolisthesis of L4 on L5. L1-L2: Broad-based disc bulge and mild bilateral facet arthropathy causing moderate to severe spinal canal stenosis. There is also at least moderate bilateral neural foraminal stenosis. L2-L3: Broad-based disc bulge, ligament flavum thickening facet arthropathy causing moderate spinal canal stenosis and moderate right-sided neural foraminal stenosis. L3-L4: Broad-based disc bulge, ligament flavum thickening and facet arthropathy causing moderate to severe spinal canal stenosis. There is mild bilateral neural foraminal stenosis. L4-L5: Broad-based disc bulge, ligament flavum thickening and facet arthropathy causing moderate to severe spinal canal stenosis and mild bilateral neural foraminal stenosis. L5-S1: Broad-based disc bulge, ligament flavum thickening causing mild bilateral neural foraminal stenosis. Diffuse hepatic steatosis. IMPRESSION: 1. No acute traumatic injury identified in the lumbar spine. 2. Chronic fracture of the L1 vertebral body with between 2550% height loss and associated kyphoplasty changes. 3. Severe multilevel spondylotic changes lumbar spine as described above. Electronically signed by: Phillip Amaro MD (09/09/2021 6:04 PM) [facility] PATIENT: CARLITOS PHELPS CACCOUNT: [id number] : 1950 LOCATION: ER AGE: 71 SEX: F EXAM STATUS: REG ER ORD. PHYSICIAN: HELENA HARRIS APRN REASON: Near syncope with diaphoresis PROCEDURE: CHEST AP ONLY AP chest. HISTORY: Diaphoresis with near syncope AP view was taken of the chest. Lungs are clear. Heart is normal in size. There is thoracolumbar scoliosis. Aorta is mildly prominent without change from the old study. There is no pleural effusion. There is medial subluxation of the right shoulder possible arthritis. IMPRESSION: 1. No acute chest disease. 2. Medial subluxation of the right shoulder with arthritis at the shoulder. Electronically signed by: Giovanny Lam MD (09/09/2021 5:56 PM) [facility] (HELENA HARRIS APRN) Heart Score C/O Chest Pain: No Risk Factors: Risk Factors: DM, Current or recent (<one month) smoker, HTN, HLP, family history of CAD, obesity. Risk Scores: Risk Factors: DM, Current or recent (<one month) smoker, HTN, HLP, family history of CAD, obesity. (HELENA HARRIS APRN) Course & Med Decision Making Course & Med Decision Making Pertinent Labs and Imaging studies reviewed. (See chart for details) 71-year-old female, vital signs reviewed, presents emergency department concerning a fall prior to arrival. Patient's physical examination nonconcerning for acute process, patient does have history of neurological disorder with rheumatoid arthritis, patient is currently being closely followed by primary care physician and has EMGs and EEG scheduled for the near future. Will order CT lumbar spine related to fall on buttocks from standing position, cardiorespiratory work-up related to sudden onset of weakness which most likely caused fall however I do not feel that her weakness is related to a cardiorespiratory process. Patient's cardiac enzymes, EKG, chest x-ray negative for acute process, CT C- spine negative for acute fracture or process. Fall and weakness most likely related to a neuropathy component. Discussed findings with patient, recommended keeping all future appointments related to neurological work-up, patient is amenable to discharge planning, patient states she does not wish to be admitted to the hospital for she fears mcc placement. Patient does stay with daughter, daughter feels safe taking her mother home. Discussed with the patient all findings and diagnostic testing as well as the need to follow-up with their primary care provider for further evaluation and treatment or return to the ED if any new or worsening symptoms. Strict return precautions were also discussed at length, the patient voiced understanding and agreement with the discharge planning. The patient was nontoxic in appearance, in no apparent distress, and hemodynamically stable at the time of disposition. (HELENA HARRIS APRN) Course & Med Decision Making I was the Attending physician on the above date of service of this patient. This patient was evaluated, examined, treated, and dispositioned from the emergency department by the mid-level practitioner. Although I was working at the time , no assistance was requested. Electronically signed, Heide Panda DO (HEIDE PANDA DO) [place] Disclaimer Dragon Disclaimer This electronic medical record was generated, in whole or in part, using a voice recognition dictation system. (HELENA HARRIS APRN) Departure Departure: Impression: Primary Impression: Weakness Disposition: 01 HOME / SELF CARE / HOMELESS Condition: GOOD Referrals: DORA VALLADARES MD (PCP) Patient Instructions: Weakness Additional Instructions: You were seen today in the emergency department after a fall when he became weak and stated your left leg gave out on you. A full cardiorespiratory work-up was performed, this work-up was reassuring and that there was no indication or signs of pneumonia or heart attack or other concerning heart or lung problems that would require admission to the hospital. A CT scan of your low back did not show any new fractures or concerning signs that would require admission to the hospital. Please keep your up and coming appointments for your neurological studies and with your primary care physician for ongoing investigation into your weakness and nerve problems. Please return to the emergency department for wor sening symptoms or other concerns. Thank you for visiting our Emergency Department. It was a pleasure taking care of you today in the emergency department and we appreciate you trusting us with your care. If any additional problems come up don't hesitate to return to visit us. Please follow up with your primary care provider so they can plan additional care if needed and know about the problem that you had. If symptoms worsen come back to the Emergency Department. Any concerning symptoms that start such as chest pain, shortness of air, weakness or numbness on one side of the body, running high fevers or any other concerning symptoms return to the ER. EMERGENCY DEPARTMENT GENERAL DISCHARGE INSTRUCTIONS Thank you for coming to [facility] (ED) today and trusting us with you care. We trust that you had a positivie experience in our Emergency Department. If you wish to speak to the department management, you may call the director at [phone]. YOUR FOLLOW UP INSTRUCTIONS ARE FOLLOWS: 1. Do you have a private Doctor? If you do not have a private doctor, please ask for a resource list of physicians or clinics that may be able to assist you with follow up care. 2. The Emergency Physician has interpreted your x-rays. The X-Ray specialist will also review them. If there is a change in the findings, you will be notified in 48 hours when at all possible. 3. A lab test or culture has been done, your results will be reviewed and you will be notified if you need a change in treatment. ADDITIONAL INSTRUCTIONS AND INFORMATION: 1. Your care today has been supervised by a physician who is specially trained in emergency care. Many problems require more than one evaluation for a complete diagnosis and treatment. We recommend that you schedule your follow up appointment as recommended to ensure complete treatment of you illness or injury. If you are unable to obtain follow up care and continue to have a problem, or if your condition worsens, we recommend that you return to the ED. 2. We are not able to safely determine your condition over the phone nor are we able to give sound medical advice over the phone. For these safety reasons, if you call for medical advice we will ask you to come to the ED for further evaluation. 3. If you have any questions regarding these discharge instructions please call the ED at [phone]. SAFETY INFORMATION: In the interest of safety, wellness, and injury prevention; we encourage you to wear your sealbelt, if you smoke; quite smoking, and we encourage family to use a protective helmet for bicycling and other sporting events that present an increased risk for head injury. IF YOUR SYMPTOMS WORSEN OR NEW SYMPTOMS DEVELOP, OR YOU HAVE CONCERNS ABOUT YOUR CONDITION; OR IF YOUR CONDITION WORSENS WHILE YOU ARE WAITING FOR YOUR FOLLOW UP APPOINTMENT; EITHER CONTACT YOUR PRIMARY CARE DOCTOR, THE PHYSICIAN WHOSE NAME AND NUMBER YOU WERE GIVEN, OR RETURN TO THE ED IMMEDIATELY. HELENA HARRIS APRN Sep 09, 2021 20:11 HEIDE PANDA DO Sep 11, 2021 12:13
== END 2021-09-09 20:20 | disposition home or self-care (01) ==
LOC: ER 16:41
DX: R53.1 Weakness (principal); S43.001A Unspecified subluxation of right shoulder joint, initial encounter; I10 Essential (primary) hypertension; Z90.710 Acquired absence of both cervix and uterus
CPT/HCPCS: 36415; 71045; 72131; 80053; 82553; 84484; 85025; 93005; 99285-25

== ENCOUNTER → 2021-09-29 | Outpatient (CLI) | payer MEDICARE, OTHER ==
[2021-09-09 16:50] VITALS: BP 161/91
[~2021-09-29] MED LIST changes: -CYCL-331 PO; +CYCL10TA19 PO
--- NOTE | 2021-09-29 10:48 | RAD ---
EXAM: US BREAST LTD RT 09/29/2021 9:23 AM CLINICAL INDICATION: Right breast contusion and lump in the right axilla. The patient reports deric us falls and bruising recently. Bruising on her right breast and the lump in her right axilla have re portedly decreased in size per the patient. COMPARISON: Screening mammogram 12/24/2020 TECHNIQUE: Grayscale and color Doppler ultrasound imaging of the right breast in the area of soft ti ssue contusion was performed at 12:00 to 3:00. The right axilla was performed in the area of palpable abnormality. FINDINGS: There is trace free fluid/edema and the upper outer right breast. No discrete mass or flui d collection. There is a 2.7 x 1.9 x 1.7 cm hypoechoic collection in the right axilla in the area of concern. There are some internal echoes seen dependently. No vascularity. There are normal adjacent lymph nodes adj acent the right axilla. IMPRESSION: 1. Trace free fluid/edema in the upper outer right breast in the area of contusion. No mass or fluid collection. 2. 2.7 cm hypoechoic collection in the right axilla. This is most likely a hematoma given the history of fall, overlying bruising, and reported decreasing size per the patient. Recommend 3 week follow-u p ultrasound of the right axilla to ensure resolution. BI-RADS 3-probably benign. Recommend 3 weeks follow-up ultrasound. Electronically signed by: Violet Davis MD (09/29/2021 10:45 AM) [id number]
== END ==
LOC: US 09:17
PROVIDERS: ATTEND Family Medicine
DX: S20.01XA Contusion of right breast, initial encounter (principal); R22.31 Localized swelling, mass and lump, right upper limb; X58.XXXA Exposure to other specified factors, initial encounter; Y93.89 Activity, other specified; Y92.89 Other specified places as the place of occurrence of the external cause; Y99.8 Other external cause status
CPT/HCPCS: 76642

== ENCOUNTER 2021-12-13 10:23 | Emergency (ER) | payer MEDICARE, OTHER ==
[~2021-12-13] VITALS: Ht 162.6 cm; Wt 86.0 kg
--- NOTE | 2021-12-13 11:03 | PHYS DOC ---
Past History Past Medical History: Arthritis, Hypertension Additional Past Medical Histor: chronic pain Past Surgical History: Hysterectomy, Knee Replacement Additional Past Surgical Histo: bilateral knee replacement Alcohol Use: None Drug Use: None Adult General Chief Complaint Chief Complaint: SHOULDER INJURY HPI HPI Patient is a 71-year-old female presenting with daughter for left shoulder pain. Onset was yesterday while carrying groceries. States she was carrying approximately 10 pounds of groceries and without fall, trauma, mechanism of injury or other exposure suffering focal left shoulder pain. Reports pain is sharp and worsens with all directions of movement. She has no change in motor or sensory or neuro function. States she took ibuprofen and leftover hydrocodone 5 without relief in symptoms prompting her to come in for evaluation Review of Systems Review of Systems Fourteen body systems of review of systems have been reviewed. See HPI for pertinent positives and negative responses, other rogel all other systems are negative, non-pertinent or non-contributory Allergies Allergies Allergies Coded Allergies Type Severity Reaction Last Updated Verified niacin Allergy Unknown 12/13/21 Yes Physical Exam Physical Exam Constitutional: Well developed, well nourished, no acute distress, non-toxic appearance. HENT: Normocephalic, atraumatic, bilateral external ears normal, oropharynx moist, no oral exudates, nose normal. Eyes: PERRLA, EOMI, conjunctiva normal, no discharge. Neck: Normal range of motion, no tenderness, supple, no stridor. Cardiovascular: Heart rate regular, sinus rhythm, no murmurs rubs or gallops Lungs & Thorax: Bilateral breath sounds clear to auscultation Abdomen: Bowel sounds normal, soft, no tenderness, no masses, no pulsatile masses. Nonsurgical abdomen, no peritoneal signs Skin: Warm, dry, no erythema, no rash. Back: No tenderness, no CVA tenderness. Extremities: No tenderness, no cyanosis, no clubbing, ROM intact, no edema. Neurologic: Alert and oriented X 3, grossly normal motor & sensory function, no focal deficits noted. Psychologic: Affect normal, judgement normal, mood normal. Current Patient Data Vital Signs Vital Signs Date Time Temp Pulse Resp B/P (MAP) Pulse Ox O2 Delivery O2 Flow Rate FiO2 12/13/21 10:41 97.5 115 18 134/67 (89) 96 Room Air Lab Results Current Medications Medications (Trade) Dose Ordered Sig/Chris Route PRN Reason Start Time Stop Time Status Last Admin Dose Admin Acetaminophen/ Hydrocodone Bitart (Lortab 5/325) 1 tab 1X ONCE PO 12/13/21 12:00 12/13/21 12:03 DC 12/13/21 12:01 EKG EKG [] Radiology/Procedures Radiology/Procedures XR SHOULDER_LEFT 2+ VIEWS 12/13/2021 10:50 AM INDICATION: Shoulder injury COMPARISON: None available. TECHNIQUE: 3 views of the left shoulder are provided. FINDINGS/ IMPRESSION: There is no acute fracture or dislocation. Mild osteoarthrosis of the glenohumeral joint. Bone mineralization is within normal limits. Regional soft tissues are within normal limits. There is no soft tissue gas or osseous erosio n. No radiopaque foreign body. Electronically signed by: Hortencia Clay MD (12/13/2021 11:09 AM) [id number] ///////////////////////////////////////////// XR CHEST 1V 12/13/2021 10:50 AM INDICATION: Shoulder injury COMPARISON: 09/09/2021 TECHNIQUE: Portable frontal view of the chest is provided. FINDINGS/ IMPRESSION: The cardiomediastinal silhouette is within normal limits. There is increase in perihilar interstitial airspace disease. Findings suggest infectious/inflammatory pneumonitis. There are no significant pleural effusions. There is no pulmonary vascular congestion. No pneumothorax. There may be right shoulder dislocation. Dedicated imaging could be of benefit. Electronically signed by: Hortencia Clay MD (12/13/2021 11:08 AM) [id number] Heart Score C/O Chest Pain: No Risk Factors: Risk Factors: DM, Current or recent (<one month) smoker, HTN, HLP, family history of CAD, obesity. Risk Scores: Risk Factors: DM, Current or recent (<one month) smoker, HTN, HLP, family history of CAD, obesity. Course & Med Decision Making Course & Med Decision Making ABCs unremarkable besides tachycardia and an anxious individual Vitals, physical exam and radiographs of chest and shoulder concerning for chronic right-sided shoulder dislocation, abnormal lung findings and patient with history of histoplasmosis, and grossly unremarkable left shoulder Patient has chronic right shoulder issues and currently seen in outpatient setting with orthopedic surgeon, she is pending outpatient follow-up this week for likely surgical intervention I disclosed patient's abnormal lung findings, she disclosed she had a history of histoplasmosis. She is unvaccinated against COVID-19 and despite symptoms, given current pandemic and fact that she is unvaccinated I recommended swab but patient deferred I disclosed no acute bony abnormality found of left shoulder, I am concerned for potential bicipital tendon and/or rotator cuff pathology. Outpatient follow-up with orthopedic surgeon for repeat evaluation and potential MRI advised Ultimately, supportive care practices and joint decision made to refill extremely short narcotic pain prescription and patient with chronic pain advised with close primary care and orthopedic follow-up. Strict return precautions discussed prior to ER departure Kristine Disclaimer [place] Disclaimer This electronic medical record was generated, in whole or in part, using a voice recognition dictation system. Departure Departure: Impression: Primary Impression: Left shoulder pain Additional Impression: Chronic right shoulder pain Disposition: HOME / SELF CARE / HOMELESS Condition: STABLE Referrals: DORA VALLADARES MD (PCP) Additional Instructions: As discussed prior to ER departure, your vitals, physical exam and radiographs were nonconcerning for any emergent or surgical issues. I disclosed all fi ndings with you such as chronic right-sided shoulder abnormality/dislocation, atypical appearance of lungs in setting of your history of histoplasmosis infection, and left shoulder pain without any bony abnormality. Unfortunately, there is no acute indication for further diagnostic work-up and/or need for hospitalization at present. You are already established with an outpatient orthopedic surgeon whom you should contact first thing tomorrow morning to review ER visit today and need for close outpatient follow-up. You might require outpatient MRI to further evaluate your left shoulder pain. If any concerning signs or symptoms present prior to outpatient follow-up please do not hesitate to come back for repeat evaluation. It was a pleasure to take care of you and I wish you the best going forward Scripts Hydrocodone Bit/Acetaminophen (HYDROCODONE-APAP 5-325 ) 1 Each Tablet 1 TAB PO PRN Q6HRS PRN for PAIN, #14 TAB 0 Refills Prov: HEIDE PANDA DO 12/13/21 Problem Qualifiers HEIDE PANDA DO Dec 13, 2021 11:03
--- NOTE | 2021-12-13 11:11 | RAD ---
XR CHEST 1V 12/13/2021 10:50 AM INDICATION: Shoulder injury COMPARISON: 09/09/2021 TECHNIQUE: Portable frontal view of the chest is provided. FINDINGS/ IMPRESSION: The cardiomediastinal silhouette is within normal limits. There is increase in perihilar interstitial airspace disease. Findings suggest infectious/inflammatory pneumonitis. There are no significant pleural effusions. There is no pulmonary vascular congestion. No pneumothora x. There may be right shoulder dislocation. Dedicated imaging could be of benefit. Electronically signed by: Hortencia Clay MD (12/13/2021 11:08 AM) [id number]
--- NOTE | 2021-12-13 11:12 | RAD ---
XR SHOULDER_LEFT 2+ VIEWS 12/13/2021 10:50 AM INDICATION: Shoulder injury COMPARISON: None available. TECHNIQUE: 3 views of the left shoulder are provided. FINDINGS/ IMPRESSION: There is no acute fracture or dislocation. Mild osteoarthrosis of the glenohumeral joint. Bone minera lization is within normal limits. Regional soft tissues are within normal limits. There is no soft ti ssue gas or osseous erosion. No radiopaque foreign body. Electronically signed by: Hortencia Clay MD (12/13/2021 11:09 AM) [id number]
[2021-12-13] MEDS ORDERED: HYDR-2155 PO (11:49)
[2021-12-13] MEDS ORDERED: HYDROcodone/APAP 5/325MG 1 TAB TABLET PO ONE (12:00)
[2021-12-13 12:02] VITALS: BP 123/67
== END 2021-12-13 12:03 | disposition home or self-care (01) ==
LOC: ER 10:23
DX: M25.512 Pain in left shoulder (principal); M25.511 Pain in right shoulder; G89.29 Other chronic pain; M19.90 Unspecified osteoarthritis, unspecified site; I10 Essential (primary) hypertension; Z96.653 Presence of artificial knee joint, bilateral; Z88.1 Allergy status to other antibiotic agents
CPT/HCPCS: 71045; 73030; 99284

== ENCOUNTER → 2022-01-03 | Outpatient (CLI) | payer MEDICARE, OTHER ==
[2021-12-13 12:02] VITALS: BP 123/67
[~2022-01-03] MED LIST changes: +IOHEXOL 300 MG/ML 75 ML VIAL. IV ONE
--- NOTE | 2022-01-03 09:10 | RAD ---
Study: CT abdomen/pelvis with and without intravenous contrast Indication: Elevated C-reactive protein. Comparison: No previous dedicated CT of the abdomen/pelvis. Correlation is made to a CT lumbar spine from 09/09/2021 and abdominal ultrasound from 09/03/2021 Technique: Helical CT imaging performed of the abdomen and pelvis both prior to and after the intrave nous administration of 75 cc contrast. Sagittal and coronal reformats were obtained. One or more of the following individualized dose reduction techniques were utilized for this examinat ion: 1. Automated exposure control 2. Adjustment of the mA and/or kV according to patient size 3. Use of iterative reconstruction technique. Findings: Mildly heterogeneous attenuation at the lower lungs with ground glass haziness at the subpleural aspe ct of the right and left lower lobes. This is felt unlikely of clinical significance and related to a telectasis. No confluent infiltrate to indicate an active pneumonia. Hepatic steatosis. Small cystic focus measuring simple density along the posterior margin of the caud ate lobe, image 14 series 5, measuring 0.7 cm. Liver size is within normal limits. Mildly distended g allbladder. No CT manifestations of acute cholecystitis. Within normal limits common duct caliber. Un remarkable pancreas. The spleen is within normal limits for size. No adrenal gland mass. Symmetric renal parenchymal enhancement. Subcentimeter cystic focus at the inferior pole of the right kidney is too small to characterize but statistically most likely benign. No dedicated follow-up is needed based off of consensus recommendations. No hydronephrosis. Normal bladder wall thickness. Abse nt uterus. No adnexal mass. Small right ovarian cystic focus on image 57 series 5 measuring 1.2 cm wi th an internal density of less than 20 Hounsfield units. This is unchanged from the previous lumbar s pine CT typical of a benign finding. Mild volume colonic stool burden. Normal appendix, image 53 series 5. Nonobstructed small bowel. Unre markable stomach. Multifocal calcified and noncalcified atheromatous plaque. Tortuosity of the aorta without aneurysmal dilatation. Patent central portal veins and central superior mesenteric vein. No lymphadenopathy by size criteria. No free fluid or pneumoperitoneum. No complex body wall hernia. No erosive change at the SI joints. Severe arthrosis at the right hip with [id number] and prominent subchondral cystic change. The extent of subchondral cystic change has progressed from the 10/14/[address] Mild arthrosis at the left hip. Sigmoid curvature of the imaged spine. Severe multilevel discog enic arthrosis. Again seen is methylmethacrylate within the L1 vertebral body. The degree of disc spa ce collapse and vertebral body remodeling at L1-L2 has not significantly changed. There is again disc space collapse and partial bony fusion across the T12-L1 disc space. Severe discogenic arthrosis at L4-L5 without significant change. Vacuum phenomenon at most levels. Multilevel severe facet arthrosis . Stenotic central canal to varying extent but particularly severe at L3-L4 and L4-L5. Impression: 1. No acute intra-abdominal or pelvic abnormality. 2. Severe multilevel lumbar spondylosis on a background of sigmoid curvature. Augmented L1 compressi on deformity. The extent of spondylosis has not significantly changed from the 09/09/2021 comparison. Redemonstration of particularly severe central canal stenosis at L3-L4 and L4-L5. 3. Severe arthrosis at the right hip was also present on the 09/09/2021 comparison but there does ap pear to be progressive subchondral cystic change. No large joint effusion. Correlate for any worsenin g pain referable to the right hip. Electronically signed by: JOEL FREDERICK MD (01/03/2022 9:07 AM) [id number]
== END ==
LOC: CT 07:52
PROVIDERS: ATTEND Internal Medicine
DX: K76.0 Fatty (change of) liver, not elsewhere classified (principal); M47.816 Spondylosis without myelopathy or radiculopathy, lumbar region; M43.8X6 Other specified deforming dorsopathies, lumbar region; M48.061 Spinal stenosis, lumbar region without neurogenic claudication; M16.11 Unilateral primary osteoarthritis, right hip; N32.89 Other specified disorders of bladder; Q25.46 Tortuous aortic arch; Z90.710 Acquired absence of both cervix and uterus
CPT/HCPCS: 74178; Q9967

== ENCOUNTER → 2022-03-03 | Day surgery (SDC) | payer MEDICARE, OTHER ==
[~2022-03-03] MED LIST changes: +BUPIVACAINE MPF 0.25% 10 ML VIAL. ONE; +DEXAMETHASONE SOD PHOS 10 MG/ML VIAL. ONE; +IOHEXOL 300 MG/ML 50 ML VIAL. ONE; -IOHEXOL 300 MG/ML 75 ML VIAL. IV ONE; +LIDOCAINE 1% PF 30 ML VIAL. ONE
[2022-03-03 11:37] VITALS: BP 116/71
== END | disposition home or self-care (01) ==
LOC: SURG 10:54
PROVIDERS: ATTEND Anesthesiology
DX: M54.16 Radiculopathy, lumbar region (principal); M51.36 Other intervertebral disc degeneration, lumbar region; I10 Essential (primary) hypertension; E78.5 Hyperlipidemia, unspecified; G62.9 Polyneuropathy, unspecified; J44.9 Chronic obstructive pulmonary disease, unspecified; K21.9 Gastro-esophageal reflux disease without esophagitis; F11.90 Opioid use, unspecified, uncomplicated; Z87.81 Personal history of (healed) traumatic fracture; Z90.710 Acquired absence of both cervix and uterus; Z96.652 Presence of left artificial knee joint; Z98.890 Other specified postprocedural states; Z79.899 Other long term (current) drug therapy; Z88.8 Allergy status to other drugs, medicaments and biological substances
CPT/HCPCS: 64483; 64484; A4209; A4657; A4930; J1100; J3490; Q9967

== ENCOUNTER → 2022-03-11 | Outpatient (CLI) | payer MEDICARE, OTHER ==
[2022-03-03 11:37] VITALS: BP 116/71
[~2022-03-11] MED LIST changes: -BUPIVACAINE MPF 0.25% 10 ML VIAL. ONE; -DEXAMETHASONE SOD PHOS 10 MG/ML VIAL. ONE; -IOHEXOL 300 MG/ML 50 ML VIAL. ONE; -LIDOCAINE 1% PF 30 ML VIAL. ONE
--- NOTE | 2022-03-11 14:23 | RAD ---
EXAM: XR HIP_RT 2-3VIEWS 03/11/2022 10:10 AM CLINICAL INDICATION: Right hip pain after fall COMPARISON: Left hip and pelvis radiograph 02/03/2020 TECHNIQUE: AP and frog-leg lateral view of the right hip FINDINGS: No acute fracture. Alignment is normal. There is severe axial joint space narrowing of the right hip with large femoral and acetabular osteophytes and large subchondral cysts. This has progre ssed from 02/03/2020. The pubic symphysis is normal. Mild degenerative joint disease of the right sacro iliac joint. IMPRESSION: 1. No acute fracture. 2. Severe degenerative joint disease of the right hip, progressed from 02/03/2020. Electronically signed by: Violet Davis MD (03/11/2022 2:21 PM) [id number]
== END ==
LOC: RAD 10:05
PROVIDERS: ATTEND Family Medicine
DX: M16.11 Unilateral primary osteoarthritis, right hip (principal); M25.851 Other specified joint disorders, right hip
CPT/HCPCS: 73502

== ENCOUNTER → 2022-03-16 | Day surgery (SDC) | payer MEDICARE, OTHER ==
[~2022-03-16] MED LIST changes: +BUPIVACAINE MPF 0.25% 10 ML VIAL. ONE; +IOHEXOL 300 MG/ML 50 ML VIAL. ONE; +LIDOCAINE 1% PF 30 ML VIAL. ONE; +methylPREDNISolone ACETATE 40 MG/ML VIAL. ONE
[2022-03-16 12:38] VITALS: BP 144/84
== END | disposition home or self-care (01) ==
LOC: SURG 11:02
PROVIDERS: ATTEND Anesthesiology
DX: M16.11 Unilateral primary osteoarthritis, right hip (principal); I10 Essential (primary) hypertension; E78.5 Hyperlipidemia, unspecified; G62.9 Polyneuropathy, unspecified; M51.36 Other intervertebral disc degeneration, lumbar region; M47.816 Spondylosis without myelopathy or radiculopathy, lumbar region; J44.9 Chronic obstructive pulmonary disease, unspecified; K21.9 Gastro-esophageal reflux disease without esophagitis; F11.90 Opioid use, unspecified, uncomplicated; Z90.710 Acquired absence of both cervix and uterus; Z79.899 Other long term (current) drug therapy; Z98.890 Other specified postprocedural states; Z79.82 Long term (current) use of aspirin; Z88.8 Allergy status to other drugs, medicaments and biological substances; Z90.89 Acquired absence of other organs
CPT/HCPCS: 20610; 77002; A4209; A4657; A4930; J1030; J3490; Q9967